=== PATIENT | male | born 1965 ===

== ENCOUNTER 2017-12-29 18:19 | Emergency (ER) | payer MEDICAID, OTHER ==
[2017-12-29] MEDS ORDERED: Tdap Vaccine 0.5 ml Vial (10-64 yrs) IM ONE ×2 (18:46→19:02)
--- NOTE | 2017-12-29 19:03 | C.PDOC ---
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 Patient was wearing sneakers at the time, he went home to clean the wound with alcohol and then came here. Denies weakness, numbness, or other injury. Time Seen by Provider: 12/29/17 18:43 Chief Complaint (Nursing): Lower Extremity Problem/Injury History Per: Patient History/Exam Limitations: no limitations Onset/Duration Of Symptoms: Hrs Current Symptoms Are (Timing): Still Present Recent travel outside of the [place]: No - Ankle/Foot Description Of Injury: Other (Stepped on nail) Past Medical History Reviewed: Historical Data, Nursing Documentation, Vital Signs Vital Signs: Last Vital Signs Temp 98.2 F 12/29/17 18:28 Pulse 65 12/29/17 18:28 Resp 18 12/29/17 18:28 BP 188/106 H 12/29/17 18:28 Pulse Ox 99 12/29/17 18:28 Family History: States: Unknown Family Hx - Social History Hx Alcohol Use: No Hx Substance Use: No - Immunization History Hx Tetanus Toxoid Vaccination: No Hx Influenza Vaccination: No Hx Pneumococcal Vaccination: No Review Of Systems Musculoskeletal: Positive for: Foot Pain (Left) Skin: Positive for: Other (Puncture wound) Neurological: Negative for: Weakness, Numbness Physical Exam - Physical Exam Appears: Non-toxic Skin: Warm, Dry Head: Atraumatic, Normacephalic Eye(s): bilateral: Normal Inspection Extremity: Normal ROM (x4), Capillary Refill (<2 seconds), Other (Minor superficial punture wound to plantar surface of left midfoot with dried blood) Pulses: Left Dorsalis Pedis: Normal, Right Dorsalis Pedis: Normal Neurological/Psych: Oriented x3, Normal Speech, Normal Motor, Normal Sensation Gait: Steady ED Course And Treatment O2 Sat by Pulse Oximetry: 99 (Room air) Pulse Ox Interpretation: Normal Medical Decision Making Medical Decision Making: Wound was cleansed and dressed. Tetanus vaccination administered. Patient is resting comfortably in no acute distress and able to ambulate with steady gait, will start on cipro and discharge home with proper wound care instructions and follow up PMD. Disposition Counseled Patient/Family Regarding: Diagnosis, Need For Followup, Rx Given - Disposition Disposition: HOME/ ROUTINE Disposition Time: 19:00 Condition: GOOD Additional Instructions: Keep wound clean and dry Apply antibiotic cream take antibiotic twice daily Prescriptions: Ciprofloxacin [Cipro] 1 tab PO BID #14 tab Instructions: Wound Care (DC) - POA Present On Arrival: None - Clinical Impression Clinical Impression: Puncture wound of left foot with foreign body - PA / STOCK ASSOCIATE / Resident Statement MD/DO has reviewed & agrees with the documentation as recorded. - Scribe Statement The provider has reviewed the documentation as recorded by the Scribjayesh Hamm All medical record entries made by the Nielsibjayesh were at my direction and personally dictated by me. I have reviewed the chart and agree that the record accurately reflects my personal performance of the history, physical exam, medical decision making, and the department course for this patient. I have also personally directed, reviewed, and agree with the discharge instructions and disposition.
[2017-12-29 19:13] VITALS: BP 164/95; PULSE 67; RESP 20; TEMP 98.1
[2017-12-29 20:19] VITALS: O2SAT 99
== END 2017-12-29 19:15 | disposition home or self-care (01) ==
LOC: C.ER 18:19
DX: S91.342A Puncture wound with foreign body, left foot, initial encounter (principal); W45.0XXA Nail entering through skin, initial encounter